=== PATIENT | male | born 1985 | race Caucasian/White ===

== ENCOUNTER 2017-04-20 22:38 | Emergency (ER) | payer SELFPAY ==
[~2017-04-20] VITALS: Ht 170.2 cm; Wt 86.2 kg
[2017-04-20 22:43] VITALS: BP 142/78
--- NOTE | 2017-04-20 22:58 | NUR ---
PT WEELCHAIRED TO BED 11
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
[2017-04-21 01:11] VITALS: BP 135/72
--- NOTE | 2017-04-21 01:11 | NUR ---
Patient discharged with v/s stable. Written and verbal after care instructions given and explained. Patient alert, oriented and verbalized understanding of instructions. Ambulatory with steady gait. All questions addressed prior to discharge. ID band removed. Patient advised to follow up with PMD. Rx of MOTRIN 600MG given. Patient educated on indication of medication including possible reaction and side effects. Opportunity to ask questions provided and answered.
== END 2017-04-21 01:11 | disposition home or self-care (01) ==
LOC: MED 22:38
DX: S41.032A Puncture wound without foreign body of left shoulder, initial encounter (principal); S00.81XA Abrasion of other part of head, initial encounter; F10.99 Alcohol use, unspecified with unspecified alcohol-induced disorder; I10 Essential (primary) hypertension; X99.8XXA Assault by other sharp object, initial encounter; Y93.89 Activity, other specified; Y92.89 Other specified places as the place of occurrence of the external cause; Y99.8 Other external cause status
CPT/HCPCS: 71010; 73030; 90471; 90715; 99283; 99284

== ENCOUNTER 2019-08-31 19:23 | Emergency (ER) | payer SELFPAY ==
[~2019-08-31] VITALS: Ht 175.3 cm; Wt 83.5 kg
[2019-08-31 19:40] VITALS: BP 186/100
--- NOTE | 2019-08-31 19:40 | NUR ---
TO BED # 12 AMBULATORY
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
[2019-08-31] MEDS ORDERED: KETOROLAC 60 MG/2 ML VIAL IM ONE (20:00)
--- NOTE | 2019-08-31 21:00 | NUR ---
PATIENT STATES PAIN HAS IMPROVED BUT STILL HAS SHARP PAIN WHEN HE MOVES.
[2019-08-31 22:22] VITALS: BP 186/100
--- NOTE | 2019-08-31 22:22 | NUR ---
Patient discharged with v/s stable. Written and verbal after care instructions given and explained. Patient alert, oriented and verbalized understanding of instructions. Ambulatory with steady gait. All questions addressed prior to discharge. ID band removed. Patient advised to follow up with PMD. Rx of NAPROSYN given. Patient educated on indication of medication including possible reaction and side effects. Opportunity to ask questions provided and answered. DISCHARGE INSTRUCTIONS GIVEN BY DR HURLEY.
== END 2019-08-31 22:22 | disposition home or self-care (01) ==
LOC: MED 19:23
DX: S23.41XA Sprain of ribs, initial encounter (principal); X50.0XXA Overexertion from strenuous movement or load, initial encounter; Y93.89 Activity, other specified; Y92.89 Other specified places as the place of occurrence of the external cause; Y99.8 Other external cause status
CPT/HCPCS: 71250; 96372; 99284; J1885

== ENCOUNTER 2023-09-18 13:22 | Emergency (ER) | payer SELFPAY ==
[~2023-09-18] VITALS: Ht 175.3 cm; Wt 95.3 kg
[2023-09-18 14:10] VITALS: BP 94/52; PULSE 112; RESP 18; TEMP 96.8; O2SAT 100
[2023-09-18 15:05] LABS: BASOPHILS % (AUTO) 0.4 % (0.0-2.0); HEMATOCRIT 22.3 % (36-52); HEMOGLOBIN 7.5 g/dL (12.0-18.0); LYMPHOCYTES # (AUTO) 1.1 K/uL (2.0-11.5); LYMPHOCYTES % (AUTO) 9.1 % (20.5-51.1); MEAN CORPUSCULAR HEMOGLOBIN 33 pg (27-31); MEAN CORPUSCULAR HGB CONC 34 g/dL (33-37); MEAN CORPUSCULAR VOLUME 98.7 fL (80-94); MONOCYTES # (AUTO) 0.4 K/uL (0.8-1.0); NEUTROPHILS # (AUTO) 10.3 K/uL (1.8-7.7); NEUTROPHILS % (AUTO) 87.5 % (42.2-75.2); PLATELET COUNT (AUTO) 150 K/uL (140-450); RED BLOOD CELL COUNT(AUTO) 2.26 MIL/uL (4.20-6.10); RED CELL DISTRIBUTION WIDTH 17.1 % (11.6-13.7); WHITE BLOOD COUNT (AUTO) 11.8 K/uL (4.8-10.8)
[2023-09-18] MEDS: NACL 0.9% 1,000 ML IV ONE (15:12)
[2023-09-18] MEDS ORDERED: cefTRIAXone 1,000 MG VIAL ONE (15:16)
[2023-09-18 15:18] LABS: ANION GAP 20.9 (8-16); CALCIUM 7.5 mg/dL (8.5-10.1); CARBON DIOXIDE 17.8 mmol/L (21-32); CREATININE 1.1 mg/dL (0.6-1.3); INR 1.78 (0.8-1.2); PARTIAL THROMBOPLASTIN TIME 27.9 secs (22-35.6); POTASSIUM 3.7 mmol/L (3.5-5.1); PROTHROMBIN TIME 18.2 secs (10.8-13.4)
[2023-09-18 15:22] LABS: ALANINE AMINOTRANSFERASE 48 U/L (12-78); ALBUMIN 1.6 g/dL (3.4-5.0); ALKALINE PHOSPHATASE 335 U/L (50-136); ASPARTATE AMINOTRANSFERASE 154 U/L (15-37); BILIRUBIN,DIRECT 3.2 mg/dL (0.0-0.3); TOTAL BILIRUBIN 4.6 mg/dL (0.0-1.0); TOTAL PROTEIN, SERUM 5.6 g/dL (6.4-8.2)
[2023-09-18] MEDS: ONDANSETRON 4 MG/2 ML VIAL IVP ONE (15:23)
[2023-09-18] MEDS: PANTOPRAZOLE 40 MG INJ VIAL IVP ONE (15:27)
[2023-09-18] MEDS: OCTREOTIDE ACETATE 100 MCG/ML VIAL IV ONE (16:12)
[2023-09-18] MEDS: OCTREOTIDE ACETATE 100 MCG/ML VIAL ONE (16:13)
[2023-09-18 17:15] VITALS: BP 122/77; PULSE 93; RESP 27; TEMP 98.1; O2SAT 99
[2023-09-18] MEDS: LORazepam 2 MG/ML VIAL IVP ONE (17:20)
== END 2023-09-18 17:15 | disposition short-term general hospital (02) ==
LOC: MED 13:22
DX: K92.2 Gastrointestinal hemorrhage, unspecified (principal); I21.4 Non-ST elevation (NSTEMI) myocardial infarction; R74.01 Elevation of levels of liver transaminase levels; D64.9 Anemia, unspecified; R57.8 Other shock; K74.60 Unspecified cirrhosis of liver; Z79.899 Other long term (current) drug therapy
CPT/HCPCS: 36415; 36430; 71045; 80048; 80076; 82140; 83880; 84484; 85025; 85610; 85730; 86886; 86900; 86901; 86920; 93005; 96365; 96375; 99291; 99292; C9113; J0696; J2060; J2354; J2405; J7030; P9016